=== PATIENT | male | born 2000 | race African-American/Black ===

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

== ENCOUNTER → 2020-09-20 | Outpatient (CLI) | payer SELFPAY ==
[~2020-09-20] MED LIST changes: +AVPAK AZITHROM250 MG PO; +PREDNISONE20 M1 PO; +PROAIR HFA8.5 GM INH
== END | disposition home or self-care (01) ==
LOC: COVID19 12:00
PROVIDERS: ATTEND Internal Medicine
DX: Z20.828 Contact with and (suspected) exposure to other viral communicable diseases (principal)

== ENCOUNTER 2021-09-17 06:03 | Emergency (ER) | payer SELFPAY ==
[~2021-09-17] VITALS: Ht 170.1 cm; Wt 97.5 kg
[2021-09-17 06:14] VITALS: BP 119/88
== END 2021-09-17 07:21 | disposition left against medical advice (07) ==
LOC: ED 06:03
DX: S61.216A Laceration without foreign body of right little finger without damage to nail, initial encounter (principal); W22.8XXA Striking against or struck by other objects, initial encounter; Y93.89 Activity, other specified; Y92.89 Other specified places as the place of occurrence of the external cause; Y99.8 Other external cause status

== ENCOUNTER 2022-01-10 00:48 | Emergency (ER) | payer SELFPAY ==
[2022-01-10 00:55] VITALS: BP 121/79
[2022-01-10 02:12] LABS: HEMATOCRIT 44.8 % (42.0-52.0); MEAN CELL VOLUME 91.8 fl (80.0-94.0); MEAN CORPUSCULAR HGB 30.5 pg (27.0-31.0); MEAN CORPUSCULAR HGB CONC 33.3 g/dl (33.0-37.0); PLATELET COUNT AUTOMATED 254 10*3/uL (130-400); RED BLOOD COUNT 4.88 10*6/uL (4.50-5.90); RED CELL DISTRI WIDTH 13.1 % (0-14.5); WHITE BLOOD COUNT 10.2 10*3/uL (4.8-10.8)
[2022-01-10 02:13] LABS: MANUAL DIFF REFLEX YES
[2022-01-10 02:26] LABS: ALKALINE PHOSPHATASE 85 U/L (45-117); BUN 6 mg/dl (7-24); CHLORIDE 104 mmol/L (98-107); CREATININE 0.87 mg/dL (0.70-1.30); POTASSIUM 4.1 mmol/L (3.5-5.1); SGOT/AST 43 IU/L (3-35); SGPT/ALT 62 U/L (12-78); SODIUM 136 mmol/L (136-145); TOTAL PROTEIN 7.7 gm/dL (6.4-8.2)
[2022-01-10 02:49] LABS: ATYPICAL LYMPHS 8 % (0-0); PLATELET SUFFICIENCY NORMAL (NORMAL); TOTAL CELLS COUNTED 100 #CELLS
[2022-01-10] MEDS ORDERED: PREDNISONE10 M1 PO (05:38)
== END 2022-01-10 05:33 | disposition home or self-care (01) ==
LOC: ED 00:48
PROVIDERS: Emergency Medicine
DX: B27.90 Infectious mononucleosis, unspecified without complication (principal); J02.9 Acute pharyngitis, unspecified

== ENCOUNTER 2022-09-09 14:38 | Emergency (ER) | payer BC ==
[~2022-09-09] VITALS: Ht 167.6 cm; Wt 108.9 kg
[~2022-09-09 14:38] MED LIST changes: +PREDNISONE10 M1 PO
[2022-09-09 14:42] VITALS: BP 154/64
[2022-09-09 15:31] LABS: BILIRUBIN Negative (Negative); BLOOD Negative (Negative); CLARITY Clear (Clear); COLOR Yellow (Yellow); GLUCOSE Negative (Negative); KETONE Negative (Negative); LEUKO ESTERASE Negative (Negative); NITRITE Negative (Negative); SPECIFIC GRAVITY 1.015 (1.001-1.030); UROBILINOGEN 0.2 E.U./dl (0.0-1.0)
[2022-09-09 15:40] LABS: BACTERIA TRACE; EPITHELIAL CELLS 0-2
== END 2022-09-09 15:30 | disposition home or self-care (01) ==
LOC: ED 14:38
PROVIDERS: Emergency Medicine
DX: Z20.2 Contact with and (suspected) exposure to infections with a predominantly sexual mode of transmission (principal)

== ENCOUNTER 2023-02-15 01:26 | Emergency (ER) | payer BC ==
[~2023-02-15] VITALS: Ht 167.6 cm; Wt 117.9 kg
[2023-02-15 01:36] VITALS: BP 137/66
[2023-02-15] MEDS ORDERED: PREDNISONE50 MG PO (02:17)
== END 2023-02-15 02:17 | disposition home or self-care (01) ==
LOC: ED 01:26
DX: M79.671 Pain in right foot (principal)

== ENCOUNTER 2023-02-16 11:29 | Emergency (ER) | payer BC ==
[~2023-02-16 11:29] MED LIST changes: +PREDNISONE50 MG PO
[2023-02-16 11:55] VITALS: BP 151/99
== END 2023-02-16 15:44 | disposition left against medical advice (07) ==
LOC: ED 11:29
DX: M79.671 Pain in right foot (principal); Z53.21 Procedure and treatment not carried out due to patient leaving prior to being seen by health care provider

== ENCOUNTER → 2023-02-26 | Outpatient (CLI) | payer BC ==
[~2023-02-26] MED LIST changes: +CEPHALEXIN500 M1 PO; +SULFAMETHOXAZOLE-TMP PO; +VIBRAMYCIN100 MG PO
== END ==
LOC: WOUNDCARE 01:37
PROVIDERS: ATTEND Podiatrist Foot & Ankle Surgery
DX: L03.115 Cellulitis of right lower limb (principal); L97.512 Non-pressure chronic ulcer of other part of right foot with fat layer exposed; L84 Corns and callosities; F17.200 Nicotine dependence, unspecified, uncomplicated

== ENCOUNTER → 2023-03-05 | Outpatient (CLI) | payer BC | END | disposition home or self-care (01) | LOC: WOUNDCARE 00:39 | PROVIDERS: ATTEND Podiatrist Foot & Ankle Surgery | DX: L03.115 Cellulitis of right lower limb (principal); L97.512 Non-pressure chronic ulcer of other part of right foot with fat layer exposed; L84 Corns and callosities; F17.200 Nicotine dependence, unspecified, uncomplicated ==

== ENCOUNTER → 2023-03-12 | Outpatient (CLI) | payer BC | END | disposition home or self-care (01) | LOC: WOUNDCARE 02:11 | PROVIDERS: ATTEND Podiatrist Foot & Ankle Surgery | DX: L97.512 Non-pressure chronic ulcer of other part of right foot with fat layer exposed (principal); L03.115 Cellulitis of right lower limb; L84 Corns and callosities; F17.200 Nicotine dependence, unspecified, uncomplicated ==

== ENCOUNTER 2024-04-28 14:29 | Emergency (ER) | payer BC ==
[~2024-04-28] VITALS: Wt 103.4 kg
[2024-04-28 15:11] VITALS: BP 110/67
[2024-04-28] MEDS ORDERED: CEPHALEXIN500 M1 PO (15:19)
[2024-04-28] MEDS ORDERED: CEPHALEXIN 500 MG CAP PO ONE (15:25)
[2024-04-28] MEDS ORDERED: Tdap Vaccine 0.5 ML SYR (Adult Vaccine) IM ONE (15:25)
== END 2024-04-28 15:44 | disposition home or self-care (01) ==
LOC: ED 14:29
DX: S91.201A Unspecified open wound of right great toe with damage to nail, initial encounter (principal); F17.290 Nicotine dependence, other tobacco product, uncomplicated; Z79.2 Long term (current) use of antibiotics; W26.8XXA Contact with other sharp object(s), not elsewhere classified, initial encounter; Y93.89 Activity, other specified; Y92.89 Other specified places as the place of occurrence of the external cause; Y99.8 Other external cause status